=== PATIENT | female | born 1950 | race Caucasian/White ===

== ENCOUNTER 2017-06-15 05:11 | Day surgery (SDC) | payer OTHER ==
[2017-06-10 14:33] VITALS: BMI 21.0
[~2017-06-15] VITALS: Ht 157.5 cm; Wt 52.7 kg
[~2017-06-15 05:11] MED LIST: CALC500C70 PO; DIPH25CA65 PO; MELA1TAB5 PO; MULT-506 PO; VNTHFA/IN INH; ZOLP10TA PO
[2017-06-15 05:41] VITALS: BP 139/80; PULSE 69; TEMP 36.6; O2SAT 97; Ht 157.5 cm; Wt 52.7 kg
[2017-06-15] MEDS ORDERED: CLINDAMYCIN 600 MG/54 ML D5W IV SCH (06:00)
[2017-06-15] MEDS ORDERED: LACTATED RINGER'S 1000ML 1,000 ML IV SCH (06:00)
[2017-06-15] MEDS ORDERED: PROPOFOL IV EMULSION 10 MG/ML 20 ML VIAL IV ONE (06:28)
[2017-06-15] MEDS ORDERED: MIDAZOLAM HCL 1 MG/ML 2ML VIAL ONE (06:28)
[2017-06-15] MEDS ORDERED: FENTANYL CITRATE INJ 50 MCG/1 ML 2 ML VIAL ONE (06:29)
[2017-06-15] MEDS ORDERED: BUPIVACAINE 0.5 % 5 MG/1 ML MPF 30ML VIAL ONE ×2 (07:01→08:07)
[2017-06-15] MEDS ORDERED: LIDOCAINE HCL 1% 20 ML VIAL ONE ×2 (07:01→08:06)
--- NOTE | 2017-06-15 07:02 | History & Physical Bridge Note ---
H&P Re-Evaluation Bridge Note: I have examined the patient, reviewed the History & Physical and in the interval since the performance of the History & Physical I have noted the following changes of clinical significance: No changes noted
[2017-06-15] MEDS ORDERED: CLINDAMYCIN IV 600 MG in DEXTROSE 5% 50ML 50 ML IV ONE (07:15)
[2017-06-15] MEDS ORDERED: BACITRACIN OINT 15 GM TUBE ONE (08:06)
[2017-06-15] MEDS ORDERED: EpHEDrine SULFATE INJ 50 MG/ML AMP IV PRN (08:30)
[2017-06-15] MEDS ORDERED: ATROPINE SULFATE 0.1 MG/ML 5ML SYR IV PRN (08:30)
[2017-06-15] MEDS ORDERED: FENTANYL CITRATE INJ 50 MCG/1 ML 2 ML VIAL IV PRN (08:30)
[2017-06-15] MEDS ORDERED: ONDANSETRON INJ 2 MG/ML 2 ML VIAL IV PRN (08:30)
--- NOTE | 2017-06-15 08:36 | [facility] Post Operative Brief Note ---
Immediate Operative Summary Operative Date Jun 15, 2017. 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 Right Axillary Lipoma Drains None Anesthesia Type MAC Complication(s) none Disposition Accompanied Pt To Recover: yes Disposition: same day
[2017-06-15 08:40] VITALS: BP 144/76; PULSE 66; TEMP 36.4; O2SAT 100
[2017-06-15] MEDS ORDERED: OXYC-57 PO (08:49)
--- NOTE | 2017-06-15 08:51 | Discharge Instructions ---
Discharge Instructions Date of Service Jun 15, 2017. Visit Reason for Visit: Right Axilla Lymphadenopathy Discharge Discharge Diagnosis / Problem: S/P resection a lipoma on right axillary Discharge Goals Goal(s): Decrease discomfort, Improve function Activity Recommendations Activity Limitations: per Instructions/Follow-up section Exercise/Sports Limitations: rest today May Resume Sexual Activity: when tolerated, after two weeks Shower/Bathe: may shower/bathe in 3 days Driving or Machine Use: resume 3 days after discharge Anesthesia . Post Anesthesia Instructions: If you have had General Anesthesia or IV Sedation: * Do not drive today. * Resume driving when surgeon permits. * Do not make important decisions or sign legal documents today. * Call surgeon for: 1. Temperature elevations greater than 101 degrees F. 2. Uncontrollable pain. 3. Excessive bleeding. 4. Persistent nausea and vomiting. 5. Medication intolerance (nausea, vomiting or rash). * For nausea and vomiting use only clear liquids such as: tea, soda, bouillon until nausea subsides, then gradually increase diet as tolerated. * If you have any concerns or questions, call your surgeon's office. If physician is unavailable and it is an emergency, call 911 or go to the nearest emergency room. . Diet Recommendations Recommended Home Diet: resume previous diet Procedures Procedures Performed: resection lipoma on right axillary Pending Studies Studies pending at discharge: no Medical Emergencies . Who to Call and When: Medical Emergencies: If at any time you feel your situation is an emergency, please call 911 immediately. . Non-Emergent Contact Non-Emergency issues call your: Surgeon Call Non-Emergent contact if: you have a fever, temperature is above 100.5, your pain is not controlled, your pain is worsening, wound has increased drainage, wound has increased redness . . "Provider Documentation" section prepared by Andra Worthy. . [place] Drug Monitoring Program Search Results: no issues identified
[2017-06-15 09:10] VITALS: BP 138/72; PULSE 66; TEMP 36.4; O2SAT 98
--- NOTE | 2017-06-15 10:00 | Anesthesiology Progress Note ---
Anesthesia Post Op Note Date & Time Jun 15, 2017 at 10:00 Vital Signs Pain Intensity: 0 Vital Signs Past 12 Hours Date Time Temp Pulse Resp B/P (MAP) Pulse Ox O2 Delivery O2 Flow Rate FiO2 06/15/17 08:40 36.4 66 18 144/76 100 Room Air 06/15/17 05:41 36.6 69 18 139/80 (99) 97 Room Air Notes Mental Status: alert / awake / arousable, participated in evaluation Nausea / Vomiting: adequately controlled Pain: adequately controlled Airway Patency, RR, SpO2: stable & adequate BP & HR: stable & adequate Hydration State: stable & adequate Anesthetic Complications: no major complications apparent
--- NOTE | 2017-06-15 11:02 | OPERATIVE REPORT ---
DATE OF OPERATION: 06/15/2017 PREOPERATIVE DIAGNOSIS: Enlarged lymph node in the right axilla. POSTOPERATIVE DIAGNOSIS: Lipoma in the right axilla. OPERATION: Resection of lipoma in the right axilla. SURGEON: Andra Worthy MD. ANESTHESIA: Sedation plus local. ESTIMATED BLOOD LOSS: About 10 mL FINDINGS: Lipoma in the right axilla. COMPLICATIONS: None. FINDINGS: Lipoma in the right axilla. No enlarged lymph node in the right axilla. INDICATION FOR THE PROCEDURE: This is a 66-year-old female who presented with an enlarged right axillary lymph node and the patient was required to do biopsy of right axillary lymph node. I did talk to the patient about the benefit and risk, alternate procedure. I indicated the risks may include but not limited such as bleeding, infection, may need more procedure, injury to nerves, edema in the arm. The patient understands. She signed informed consent and I answered all questions. DETAILS OF PROCEDURE: We brought the patient to the OR, put the patient in supine position. The patient received SCD on bilateral legs to prevent DVT. Also, the patient received 600 mg clindamycin IV for prophylactic antibiotic and the patient received conscious sedation by anesthesiology. The right axilla was prepped and draped in routine sterile fashion. After timeout, I injected the local anesthesia after palpating one single lump in the right axilla, and once we injected the local, then I made about a 2 cm incision and I found the patient had about a 1 x 1 cm lipoma. We removed the lipoma and then we tried to find any enlarged lymph node, we could not found any enlarged lymph node. Used this incision. Hemostasis obtained. Closed subcutaneous layer by using 2-0 Vicryl continuous running, closed skin by using 4-0 Vicryl in continuous running. We put the dressing on. The patient tolerated the procedure well. All the instrument, needle and sponge count were correct x2 at the end of the case. The patient transferred to recovery room in stable condition. After the procedure, I did talk to the patient about the OR finding and procedure we did, she understands. I attest to the content of the Intraoperative Record and any orders documented therein. Any exceptions are noted below. TL
== END 2017-06-15 09:25 | disposition home or self-care (01) ==
LOC: C.ACU 05:11
PROVIDERS: ATTEND Surgery
DX: D17.79 Benign lipomatous neoplasm of other sites (principal); G47.00 Insomnia, unspecified; Z87.891 Personal history of nicotine dependence; Z83.6 Family history of other diseases of the respiratory system; Z88.0 Allergy status to penicillin; Z88.1 Allergy status to other antibiotic agents